=== PATIENT | male | born 1995 | race Two or more races ===

== ENCOUNTER → 2018-03-13 | Outpatient (CLI) | payer OTHER ==
--- NOTE | 2018-03-13 12:08 | RADIOLOGY REPORT (SQ) ---
EXAM DESCRIPTION: U/S NON-OB PELVIS W/O DOP COMPLETED DATE/TIME: 03/13/2018 9:03 am REASON FOR STUDY: R10.9 LEFT GROIN MASS R19.09 OTHER INTRA-ABDOMINAL AND PELVIC SWELLING, MASS AND L COMPARISON: None. TECHNIQUE: Dynamic and static grayscale images acquired of the localized site of clinical concern an d recorded on PACS. Additional selected color Doppler and spectral images recorded. SITE OF CONCERN: Left groin. LIMITATIONS: None. FINDINGS: No hernia identified. Physiologic lymph nodes. No suspicious mass or hematoma. IMPRESSION: No hernia. TECHNICAL DOCUMENTATION: JOB ID: [id number] [employer] All Rights Reserved Reading location - IP/workstation name: [email or web address]
== END ==
LOC: RAD 08:22
PROVIDERS: ATTEND Nurse Practitioner Family
DX: R19.09 Other intra-abdominal and pelvic swelling, mass and lump (principal)
CPT/HCPCS: 76856

== ENCOUNTER 2020-01-21 15:39 | Emergency (ER) | payer OTHER ==
[2020-01-21 16:05] VITALS: BP 140/75
--- NOTE | 2020-01-21 16:08 | ER Document Report ---
ED Respiratory Problem - General Chief Complaint: Cough Stated Complaint: COUGH Time Seen by Provider: 01/21/20 16:04 Primary Care Provider: ROZINA BERUMEN NP [Primary Care Provider] - Follow up as needed Notes: CHIEF COMPLAINT: Cough for 3 weeks HPI: 24-year-old male presenting for cough for 3 weeks. Patient was diagnosed with Covid December 27. States he quarantine for 2 weeks using [id number] medications. Has not had fever. Reports a continuing spastic cough is not followed back up with her primary care provider for reevaluation ROS: See HPI - all other systems were reviewed and are otherwise negative Constitutional: no fever Eyes: no drainage, no blurred vision ENT: no runny nose, no sore throat Cardiovascular: no chest pain Resp: no SOB, + cough GI: no vomiting, no diarrhea, no abdominal pain : no dysuria Integumentary: no rash Allergy: no hives Musculoskeletal: no extremity pain or swelling Neurological: no numbness/tingling, no weakness MEDICATIONS: I agree with the patient medications as charted by the RN. ALLERGIES: I agree with the allergies as charted by the RN. PAST MEDICAL HISTORY/PAST SURGICAL HISTORY: Reviewed and agree as charted by RN. SOCIAL HISTORY: Reviewed and agree as charted by RN. FAMILY HISTORY: No significant familial comorbid conditions directly related to patient complaint EXAM: Reviewed vital signs as charted by RN. CONSTITUTIONAL: Alert and oriented and responds appropriately to questions. Well-appearing; well-nourished HEAD: Normocephalic; atraumatic EYES: PERRL; Conjunctivae clear, sclerae non-icteric ENT: normal nose; no rhinorrhea; moist mucous membranes; pharynx without lesions noted, no uvula edema or deviation, no tonsillar hypertrophy, phonation normal NECK: Supple without meningismus; non-tender; no cervical lymphadenopathy, no masses CARD: RRR; no murmurs, no clicks, no rubs, no gallops; symmetric distal pulses RESP: Normal chest excursion without splinting or tachypnea; breath sounds clear and equal bilaterally; no wheezes, no rhonchi, no rales, pulse oximetry 97% on room air not hypoxic, spastic cough noted ABD/GI: Normal bowel sounds; non-distended; soft, non-tender, no rebound, no guarding; no palpable organomegaly or masses. BACK: The back appears normal and is non-tender to palpation, there is no CVA tenderness EXT: Normal ROM in all joints; non-tender to palpation; no cyanosis, no effusions, no edema SKIN: Normal color for age and race; warm; dry; good turgor; no acute lesions noted NEURO: Moves all extremities equally; Motor and sensory function intact PSYCH: The patient's mood and manner are appropriate. Grooming and personal hygiene are appropriate. MDM: 24-year-old male spastic cough after Covid diagnosis 3 weeks ago. Will obtain a chest x-ray to evaluate for infiltrative chest x-ray negative anticipate discharge on Tessalon and albuterol. If chest x-ray positive anticipate discharge on Zithromax TRAVEL OUTSIDE OF THE [place] IN LAST 30 DAYS: No - Related Data Allergies/Adverse Reactions: No Known Allergies Allergy (Verified 01/05/16 12:41) Past Medical History - Social History Smoking Status: Unknown if Ever Smoked Family History: Reviewed & Not Pertinent Physical Exam - Vital signs Vitals: Temp Pulse Resp BP Pulse Ox 98.3 F 96 20 140/75 H 98 01/21/20 16:05 01/21/20 16:05 01/21/20 16:05 01/21/20 16:05 01/21/20 16:05 Course - Re-evaluation Re-evalutation: 01/21/20 16:53 Chest x-ray on my review does not show evidence of infiltrate or pneumothorax. Will discharge home with symptomatic treatment follow-up PCP - Vital Signs Vital signs: Temp Pulse Resp BP Pulse Ox 98.3 F 96 20 140/75 H 98 01/21/20 16:05 01/21/20 16:05 01/21/20 16:05 01/21/20 16:05 01/21/20 16:05 Discharge - Discharge Clinical Impression: Acute bronchospasm due to viral infection, Cough Condition: Stable Disposition: HOME, SELF-CARE Additional Instructions: Your chest x-ray today did not show evidence of pneumonia. Use the albuterol inhaler 2 puffs every 4 hours as needed for cough or spasm. Take the Tessalon Perles for cough or spasm. Follow-up with your primary care provider for reevaluation of symptoms call for appointment Prescriptions: Benzonatate [Tessalon Perles 100 mg Capsule] 100 mg PO Q8HP PRN #40 capsule PRN Reason: Albuterol Sulfate [Proair HFA Inhalation Aerosol 8.5 gm MDI] 2 puff IH Q4H PRN #1 mdi PRN Reason: Referrals: ROZINA BERUMEN NP [Primary Care Provider] - Follow up as needed
--- NOTE | 2020-01-21 16:57 | RADIOLOGY REPORT (SQ) ---
EXAM DESCRIPTION: CHEST 2 VIEWS IMAGES COMPLETED DATE/TIME: 01/21/2020 4:46 pm REASON FOR STUDY: cough COMPARISON: 08/25/2018 EXAM PARAMETERS: NUMBER OF VIEWS: two views TECHNIQUE: Digital Frontal and Lateral radiographic views of the chest acquired. RADIATION DOSE: NA LIMITATIONS: none FINDINGS: LUNGS AND PLEURA: No opacities, masses or pneumothorax. No pleural effusion. Patient has a positive history of COVID-19. MEDIASTINUM AND HILAR STRUCTURES: No masses or contour abnormalities. HEART AND VASCULAR STRUCTURES: Heart normal size. No evidence for failure. BONES: No acute findings. HARDWARE: None in the chest. OTHER: No other significant finding. IMPRESSION: 1. NO ACUTE RADIOGRAPHIC FINDING IN THE CHEST. TECHNICAL DOCUMENTATION: JOB ID: [id number] [employer]- All Rights Reserved Reading location - IP/workstation name: [email or web address]
== END 2020-01-21 17:21 | disposition home or self-care (01) ==
LOC: ER 15:39
DX: J98.01 Acute bronchospasm (principal); B97.89 Other viral agents as the cause of diseases classified elsewhere; R05 Cough
CPT/HCPCS: 71046; 99283